=== PATIENT | male | born 1965 | race African-American/Black ===

== ENCOUNTER 2017-11-23 12:37 | Emergency (ER) | payer BC, MEDICAID ==
[~2017-11-23] VITALS: Ht 177.8 cm; Wt 123.0 kg
[2017-11-23] MEDS ORDERED: ONDANSETRON HCL 4MG/2ML INJ IV STA (13:36)
[2017-11-23] MEDS ORDERED: SODIUM CHLORIDE 0.9% 1,000 ML IV ONE (13:36)
[2017-11-23] MEDS ORDERED: MORPHINE SULFATE 4 MG/ML CPJ (NOT FOR IM USE) IV STA (13:36)
[2017-11-23 14:06] LABS: BASOPHILS % 0.5 % (0.0-2.0); EOSINOPHILS % 0.7 % (0.0-5.0); HEMATOCRIT. 35.7 % (42.0-52.0); HEMOGLOBIN. 12.2 g/dL (14.0-18.0); LYMPHOCYTES % 22.3 % (20.0-50.0); MEAN CORPUSCULAR HEMOGLOBIN 30.8 pg (28.0-32.0); MEAN CORPUSCULAR VOLUME 89.8 fL (80.0-94.0); MEAN PLATELET VOLUME 7.6 fl (7.4-10.4); MONOCYTES % 6.1 % (2.0-8.0); NEUTROPHILS % 70.4 % (40.0-76.0); PLATELET 382 x1000/uL (130-400); RED BLOOD CELL COUNT 3.97 mill/uL (4.7-6.1)
[2017-11-23 14:09] LABS: CHLORIDE 109 mEq/L (98-107)
[2017-11-23 15:11] LABS: PARTIAL THROMBOPLASTIN TIME 24.2 sec (23.4-31.0); PROTHROMBIN TIME 10.2 sec (9.1-11.1)
[2017-11-23 15:41] LABS: CLARITY URINE CLEAR (CLEAR); COLOR URINE YELLOW (YELLOW); KETONES URINE NEGATIVE (NEGATIVE); LEUKOCYTE ESTERASE URINE NEGATIVE (NEGATIVE); NITRITE URINE NEGATIVE (NEGATIVE); OCCULT BLOOD URINE NEGATIVE (NEGATIVE); PROTEIN URINE NEGATIVE (NEGATIVE); SPECIFIC GRAVITY URINE 1.015 (1.005-1.030); UROBILINOGEN URINE 0.2 E.U./dL (0.2-1.0)
[2017-11-23] MEDS ORDERED: IOHEXOL-300 100 ML BOTTLE ONE (16:30)
[2017-11-23 17:10] VITALS: BP 120/64
== END 2017-11-23 17:37 | disposition home or self-care (01) ==
LOC: ER 12:37
DX: K80.20 Calculus of gallbladder without cholecystitis without obstruction (principal); R19.7 Diarrhea, unspecified; I10 Essential (primary) hypertension
CPT/HCPCS: 36415; 71045; 74177; 80053; 81003; 83690; 85025; 85610; 85730; 93005; 96361; 96374; 99285; J2270; J2405; J7030; Q9967

== ENCOUNTER 2019-04-08 02:56 | Emergency (ER) | payer MEDICAID ==
[~2019-04-08] VITALS: Ht 177.8 cm; Wt 113.0 kg
[2019-04-08] MEDS ORDERED: KETOROLAC 30MG/ML VIAL IM ONE (04:30)
[2019-04-08 05:27] VITALS: BP 158/89
== END 2019-04-08 05:44 | disposition home or self-care (01) ==
LOC: ER 02:56
DX: S09.90XA Unspecified injury of head, initial encounter (principal); S60.011A Contusion of right thumb without damage to nail, initial encounter; I10 Essential (primary) hypertension; X58.XXXA Exposure to other specified factors, initial encounter; Y93.89 Activity, other specified; Y92.89 Other specified places as the place of occurrence of the external cause; Y99.8 Other external cause status
CPT/HCPCS: 73140; 96372; 99283; J1885